=== PATIENT | female | born 1950 | race Caucasian/White ===

== ENCOUNTER 2020-03-04 09:41 | Inpatient (IN) ==
[2020-03-04] MEDS ORDERED: HYDROcodone/ACETAMIN 5/325 mg TAB PO ONE (10:12)
[2020-03-04] MEDS ORDERED: Ondansetron 4 mg VIAL 2 MG/ML 2 ml VIAL IV ONE (11:28)
[2020-03-04] MEDS ORDERED: Morphine 4 MG/ML VIAL (1 ml) IV ONE ×2 (11:28→13:01)
[2020-03-04] MEDS ORDERED: NS 0.9% 1000 ml BAG 1,000 ML IV ONE ×3 (11:28→22:33)
[2020-03-04] MEDS ORDERED: Dexamethasone IV 4 MG/ML VIAL 1 ml VIAL IV SLOW PU ONE (11:31)
[2020-03-04 12:14] LABS: ABS Basophils 0.1 10^3/ul (0-0.2); ABS Lymphocytes 1.5 10^3/ul (1.0-4.8); ABS Monocytes 0.6 10^3/ul (0-0.8); ABS Neutrophils 9.8 10^3/ul (1.5-7.7); Eosinophil % 0.1 %; Hematocrit 42 % (35-47); Hemoglobin 13.9 g/dL (12.0-16.0); Lymphocyte % 12.3 %; Mean Corpuscular HGB Conc 33 g/dL (31-36); Mean Corpuscular Hemoglobin 31 pg (27-31); Mean Corpuscular Volume 94 fL (80-97); Mean Platelet Volume 8.2 fL (7.4-10.4); Platelet Count 316 10^3/uL (150-450); Red Blood Count 4.51 10^6 /uL (3.70-4.87); Red Cell Distribution Width 14 % (10-15)
[2020-03-04 12:25] LABS: Albumin 4.5 g/dL (3.2-5.2); C Reactive Protein 2.26 mg/L (<8.01); Calcium 9.4 mg/dL (8.6-10.3); EGFR African American 31.2 (>60); EGFR Non-African American 25.7 (>60); Globulin 2.3 g/dL (2-4); Potassium 3.5 mmol/L (3.5-5.0); Total Bilirubin 0.3 mg/dL (0.2-1.0); Total Protein 6.8 g/dL (6.4-8.9); Troponin I 0.01 ng/mL (<0.03)
[2020-03-04 13:19] LABS: BUN/Creatinine Ratio 7.8 (8-20)
[2020-03-04 14:17] LABS: Urine Appearance Clear; Urine Bilirubin Negative (Negative); Urine Blood Negative (Negative); Urine Color Yellow; Urine Glucose Negative (Negative); Urine Ketones 1+ (Negative); Urine Nitrite Negative (Negative); Urine Protein Negative (Negative); Urine Urobilinogen Negative (Negative)
[2020-03-04] MEDS: oxyCODONE/Acetamin 5/325 mg TAB PO PRN ×2 (18:24→22:13)
[2020-03-04] MEDS: Morphine 2 MG/ML SYRINGE IV PRN (20:05)
[2020-03-05] MEDS: Morphine 2 MG/ML SYRINGE IV PRN ×3 (01:10→21:35)
[2020-03-05] MEDS: oxyCODONE/Acetamin 5/325 mg TAB PO PRN ×2 (04:38→09:39)
[2020-03-05 05:17] LABS: ABS Lymphocytes 1.2 10^3/ul (1.0-4.8); ABS Monocytes 0.8 10^3/ul (0-0.8); ABS Neutrophils 9.4 10^3/ul (1.5-7.7); Eosinophil % 0.1 %; Hematocrit 35 % (35-47); Hemoglobin 11.6 g/dL (12.0-16.0); Lymphocyte % 10.6 %; Mean Corpuscular HGB Conc 33 g/dL (31-36); Mean Corpuscular Hemoglobin 31 pg (27-31); Mean Corpuscular Volume 94 fL (80-97); Mean Platelet Volume 8.4 fL (7.4-10.4); Platelet Count 283 10^3/uL (150-450); Red Blood Count 3.74 10^6 /uL (3.70-4.87); Red Cell Distribution Width 13 % (10-15); White Blood Count 11.5 10^3/uL (3.5-10.8)
[2020-03-05 05:30] LABS: BUN/Creatinine Ratio 11.4 (8-20); Calcium 8.8 mg/dL (8.6-10.3); EGFR African American 86.8 (>60); EGFR Non-African American 71.7 (>60); Potassium 4.4 mmol/L (3.5-5.0)
[2020-03-05 13:43] LABS: Urine Creatinine Concentration 54.9 mg/dL
[2020-03-05] MEDS ORDERED: Acetaminophen IV 1 GM/100ML 100 ML IVPB ONE (16:51)
[2020-03-05] MEDS: Orphenadrine Citrate INJ 30 mg/ml 2 ml VIAL (60 mg) IM SCH (20:33)
[2020-03-06] MEDS: Orphenadrine Citrate INJ 30 mg/ml 2 ml VIAL (60 mg) IM SCH (06:27)
[2020-03-06 08:59] LABS: EGFR African American 96.6 (>60); EGFR Non-African American 79.9 (>60)
[2020-03-06] MEDS ORDERED: methylPREDNISolone ACETATE 40 mg/ml 1 ml VIAL **not IV ONE (11:13)
[2020-03-06] MEDS ORDERED: Lidocaine 1% VIAL 10 MG/ML VIAL ONE (11:13)
[2020-03-07] MEDS ORDERED: Acetaminophen IV 1 GM/100ML 100 ML IVPB ONE (07:43)
[2020-03-07] MEDS ORDERED: Acetaminophen IV 1 GM/100ML 50 ML IVPB ONE (08:00)
[2020-03-07] MEDS ORDERED: Magnesium Hydroxide LIQ 30 ML UDC PO ONE (23:18)
[2020-03-08 08:12] VITALS: BP 125/72
[2020-03-08] MEDS ORDERED: Influenza VAC *QUAD* 2020-21* 0.5 ML SYRINGE IM ONE (09:00)
== END 2020-03-08 12:35 | disposition home or self-care (01) | DRG 552 ==
LOC: ED 09:41 → MED 16:35
PROVIDERS: ADMIT Internal Medicine; ATTEND Internal Medicine